=== PATIENT | male | born 1960 | race Caucasian/White ===

== ENCOUNTER 2018-01-29 02:12 | Emergency (ER) | payer OTHER ==
[~2018-01-29] VITALS: Ht 180.3 cm; Wt 88.5 kg
[2018-01-29] MEDS ORDERED: IBUPROFEN 800800 MG PO (02:36)
[2018-01-29] MEDS ORDERED: NORCO 5-325 TA1 EACH PO (02:36)
[2018-01-29] MEDS ORDERED: PENICILLIN V P500 MG PO (02:36)
[2018-01-29 02:45] VITALS: BP 142/68
== END 2018-01-29 02:45 | disposition home or self-care (01) ==
LOC: M.ERS 02:12
DX: K02.9 Dental caries, unspecified (principal)